=== PATIENT | male | born 1990 | race Caucasian/White ===

== ENCOUNTER 2022-05-27 11:55 | Day surgery (SDC) | payer OTHER ==
[~2022-05-27] VITALS: Ht 180.3 cm; Wt 81.8 kg
[~2022-05-27 11:55] MED LIST: KEFLEX500 MG PO; NORCO 5-325 TA1 EACH PO; ZOFRAN4 MG PO
--- NOTE | 2022-05-27 14:54 | NUR ---
05/27/22 1454 Joyce Fair 1449- PT ARRIVES TO PACU AWAKE AND TALKING. PT REPORTS NO PAIN OR NAUSEA. PT REPORTS HE JUST "FEELS TIRED". RESP EVEN AND UNLABORED. OXYGEN SAT HIGH 90'S TO 100% ON 3L VIA NC. 1452- OXYGEN TITRATED OFF.
--- NOTE | 2022-05-28 13:13 | OR ---
[facility] [address] [place], [place] [address] Signed DATE OF OPERATION: 05/27/2022 SURGEON: Gibson Vital MD PREOPERATIVE DIAGNOSIS: Anal fissure, episodic protrusion of internal hemorrhoid, episodic rectal bleeding. POSTOPERATIVE DIAGNOSES: 1. Internal hemorrhoid x1. 2. Probable healing anal fissure. 3. No evidence of colitis, polyps, or diverticulosis. PROCEDURE: Total colonoscopy to cecum with biopsy of rectum. ANESTHESIA: Intravenous sedation, fentanyl 150 mcg, Versed 8 mg. INDICATION: This 32-year-old white man, who is a patient of Dr. Garcia. He was seen by me in the office upon referral for a lesion on his scalp as well as complaints of "hemorrhoids." He has had blood per rectum from time to time with associated pain on defecation. Clinically, he has probable grade 3 hemorrhoidal disease requiring self reduction of prolapsed hemorrhoid. 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. He takes no medications on a routine basis. Examination in the office showed him to have minimal external hemorrhoidal tags and anterior anal fissure relatively superficial. Therapy was initiated for the fissure including diltiazem ointment, which he has only recently obtained. He is to undergo colonoscopy to better characterize the source of his bleeding in particular to assess for more ominous problems including polyps, cancer, and so on. FINDINGS: The prep was excellent. Complete colonoscopy was undertaken of the cecum without question. He had a dominant internal hemorrhoid. I did not see fissure findings as I had previously though examination was not as thorough as might be obviously. A biopsy was taken of the rectum to rule out inflammatory bowel disease. DESCRIPTION OF PROCEDURE: The patient was brought to the endoscopy suite and placed in the lateral decubitus Electronically Signed By: GIBSON VITAL MD 05/28/22 1313 PATIENT NAME: SAJI DEVI OPERATIVE REPORT DATE OF : [birth year] REPORT #: [id number] PHYSICIAN: GIBSON VITAL MD PCP: NO PRIMARY CARE PHYSICIAN REPORT IS CONFIDENTIAL AND NOT TO BE RELEASED WITHOUT AUTHORIZATION [facility] [address] [place], [place] [address] Signed position given intravenous sedation to the point of slurred speech and nystagmus. Digital rectal examination was normal. Olympus video colonoscope was passed in the rectum and manipulated throughout the colon ultimately intubating the cecum. The ileocecal valve and appendiceal orifice were normal. Scope was withdrawn from that point. Examination throughout showed no sign of abnormality. In the rectum, a biopsy was obtained to assess for inflammatory bowel disease. Retroflexed view was undertaken showing a dominant hemorrhoidal complex. Close inspection of the anal canal externally did not show evidence currently of anal fissure as had been seen in the office recently. The scope was removed. The patient was taken to the recovery room in good condition. CONCLUSION DIAGNOSIS: No evidence of polyps or colitis. Internal hemorrhoid likely accounting for some of his symptoms. The fissure that he had appears to be healing. PLAN: We will see him back in the office in 4 weeks. Likely the fissure will be healed by then. Consideration will be made for hemorrhoidal banding or excision (more likely) at that point. Gibson Vital MD JM/MODL /[id number] cc: Kian Garcia DO Copies: KIAN GARCIA DO ~ Electronically Signed By: GIBSON VITAL MD 05/28/22 1313 PATIENT NAME: SAJI DEVI OPERATIVE REPORT DATE OF : [birth year] REPORT #: [id number] PHYSICIAN: GIBSON VITAL MD PCP: NO PRIMARY CARE PHYSICIAN REPORT IS CONFIDENTIAL AND NOT TO BE RELEASED WITHOUT AUTHORIZATION
--- NOTE | 2022-05-31 07:34 | PATH ---
[facility] [address] [facility] [place] [address] Signed SPECIMEN(S): A RECTUM SPECIMEN SOURCE: A. RECTUM CLINICAL HISTORY: Screening with possible biopsy. Postop diagnosis: Internal hemorrhoids FINAL PATHOLOGIC DIAGNOSIS: Rectum, biopsy: - Benign colonic mucosa with prominent intramucosal lymphoid aggregates. - No evidence of neoplasia. COMMENT: Examination of sections from three different levels of the tissue block discloses the presence of benign intramucosal lymphoid aggregates. Intramucosal lymphoid aggregates can sometimes appear as polyps endoscopically. They have no clinical significance. There is no evidence of dysplasia or malignancy. TWK:[facility]:C2NR MICROSCOPIC EXAMINATION: Histologic sections of all submitted blocks are examined by light microscopy. These findings, together with the gross examination, support the pathologic diagnosis. GROSS DESCRIPTION: The specimen, labeled "CB, 1," and designated on the requisition "rectum biopsy," is received in formalin and consists of two fragments of pink-sotomayor tissue (0.4 cm in greatest dimension). The specimen is submitted entirely in cassette A1. AC (under the direct supervision of a pathologist) The Gross Description was prepared using a voice recognition system. The report was reviewed for accuracy; however, sound-alike word errors, addition and/or deletions may occur. If there is any question about this report, please contact Client Services. PERFORMING LABORATORY: The technical component was performed by [facility], [address] [place] [id number] (CLIA# [id number]). The professional interpretation was performed by [facility] PATIENT NAME: SAJI DEVI PATHOLOGY DATE OF : [birth year] REPORT #: [id number] PHYSICIAN: ALANNAH PATHOLOGY PCP: NO PRIMARY CARE PHYSICIAN REPORT IS CONFIDENTIAL AND NOT TO BE RELEASED WITHOUT AUTHORIZATION [facility] [address] [place], [place] [address] Signed [place] [address] [address] (CLIA#: [id number]). Diagnostician: Ranjit Alfonso MD Pathologist Electronically Signed 05/28/2022 Copies: ~ PATIENT NAME: SAJI DEVI PATHOLOGY DATE OF : [birth year] REPORT #: [id number] PHYSICIAN: ALANNAH PATHOLOGY PCP: NO PRIMARY CARE PHYSICIAN REPORT IS CONFIDENTIAL AND NOT TO BE RELEASED WITHOUT AUTHORIZATION
== END 2022-05-27 15:35 | disposition home or self-care (01) ==
LOC: OPS 11:55 → DS 12:03 → OPS 13:00 → DS 13:00 → OPS 15:35
PROVIDERS: ATTEND Surgery
PROC: 0DBP8ZX Excision of Rectum, Via Natural or Artificial Opening Endoscopic, Diagnostic (ICD-10-PCS; principal; 2022-05-27 13:00)
DX: K60.1 Chronic anal fissure (principal); K64.8 Other hemorrhoids
CPT/HCPCS: 99153; G0500; J2250; J3010; J7121

== ENCOUNTER 2022-09-16 09:02 | Day surgery (SDC) | payer OTHER ==
[~2022-09-16] VITALS: Ht 180.3 cm; Wt 90.9 kg
[2022-09-16] MEDS ORDERED: OXYCODON-ACETA1 EAC2 PO (12:03)
[2022-09-16] MEDS ORDERED: IBUPROFEN600 MG PO (12:03)
[2022-09-16] MEDS ORDERED: ACETAMINOPHEN500 MG PO (12:04)
[2022-09-16] MEDS ORDERED: CITRUCEL500 MG PO (12:04)
--- NOTE | 2022-09-17 10:58 | OR ---
[facility] [address] [place], [place] [address] Signed DATE OF OPERATION: 09/16/2022 SURGEON: Gibson Vital MD PREOPERATIVE DIAGNOSIS: Grade 3/4 prolapsing hemorrhoidal disease, right anterior and right posterior bundles. POSTOPERATIVE DIAGNOSIS: Grade 3/4 prolapsing hemorrhoidal disease, right anterior and right posterior bundles. PROCEDURES: 1. Exam under anesthesia. 2. Excision of grade 4 hemorrhoid right anterior site and grade 3 right posterior hemorrhoidal complex. ANESTHESIA: Spinal with IV sedation, Kelvin Green, CERTIFIED ETHICAL HACKER and local 10 mL of 0.25% Marcaine with epinephrine. INDICATION: This 32-year-old white man is a patient of Dr. Kian Garcia. He was seen by me initially for rectal bleeding. He underwent colonoscopy on May 27, 2022, where he was found to have a dominant grade 3/4 hemorrhoidal complex as well as a healing anal fissure. He had no evidence of colitis, polyps, or diverticulosis. He did undergo hemorrhoidal banding of the proximal grade 3 hemorrhoid, which was unfortunately ineffective, but though not surprising considering the large size of the hemorrhoidal complex. Given the ongoing issue of episodic bleeding but more dominantly perianal hygiene issues and so forth, he elected to undergo hemorrhoidectomy by operative approach. The risk of bleeding, infection, recurrence, and other unforeseen complications were reviewed in detail. He understands and wished to proceed. FINDINGS: The classic hemorrhoidal areas (right posterior, right anterior and left lateral) were all obvious. The left lateral was not dominant, although did have an internal component could likely be managed by hemorrhoidal banding if bleeding should occur. The dominant hemorrhoidal problem was in the right anterior aspect. This allowed for complete hemorrhoidectomy. The right posterior hemorrhoidal bundle was smaller, though definitely abnormally enlarged and was excised as well. DESCRIPTION OF PROCEDURE: Electronically Signed By: GIBSON VITAL MD 09/17/22 1058 PATIENT NAME: SAJI DEVI OPERATIVE REPORT DATE OF : [birth year] REPORT #: [id number] PHYSICIAN: GIBSON VITAL MD PCP: KIAN GARCIA DO REPORT IS CONFIDENTIAL AND NOT TO BE RELEASED WITHOUT AUTHORIZATION [facility] [address] [place], [place] [address] Signed The patient was brought to the operating room, given a spinal anesthetic and placed in prone ari-knife position. Modified bowel prep had been undertaken. Preoperative antibiotic cefoxitin was given. Sequential compression device stockings were used and heparin subcutaneously administered. After appropriate spinal block, he was placed in a prone ari-knife position. The buttocks were taped apart. Betadine based operative site prep was undertaken. Examination externally showed the right anterior and right posterior hemorrhoidal complexes to be protruding slightly the left lateral complex, not so much. An anal retractor was placed and the dominant right anterior hemorrhoidal complex was the one of most concern and symptom to him. It was grasped with a Quintanilla clamp and elevated and using electrocautery the skin incorporating the hemorrhoidal complex excised. Small vigorously bleeding vessels were secured with hemostats dissecting down to and above the dentate line. Ultimately, that site was secured with a 2-0 chromic suture on a UR needle. Hemorrhoid was passed as right anterior hemorrhoidal complex. The mucosal defect was then secured with running 2-0 chromic having been applied to the vascular pedicle. Care was taken to avoid excessively deep bites so as to avoid anorectal spasm. The suture was tied prior to complete closure to allow for drainage as appropriate. Irrigation was undertaken. With similar technique, the right posterior hemorrhoidal complex was similarly excised. It was far smaller than the anterior one, but though no doubt problematic for him already. A 10 mL of 0.25% Marcaine with epinephrine was injected locally. Examination of the left lateral aspect showed grade 2 hemorrhoidal change. Operative excision was deemed inadvisable under the circumstances and that tissue was left in situ. That hemorrhoidal complex might be amenable to banding if he should develop bleeding (which he has not as far as we know). A peripad was applied. He was returned to the supine position and ultimately taken to the recovery room in good condition. Blood loss was about 30 mL in aggregate. Sponge, needle, and instrument counts were reported as correct x3. MD [place] Lee/MODL /[id number] cc: Kain Garcia DO Electronically Signed By: GIBSON VITAL MD 09/17/22 1058 PATIENT NAME: SAJI DEVI OPERATIVE REPORT DATE OF : [birth year] REPORT #: [id number] PHYSICIAN: GIBSON VITAL MD PCP: KIAN GARCIA DO REPORT IS CONFIDENTIAL AND NOT TO BE RELEASED WITHOUT AUTHORIZATION [address] [address] Signed Copies: KIAN GARCIA DO ~ Electronically Signed By: GIBSON VITAL MD 09/17/22 1058 PATIENT NAME: SAJI DEVI OPERATIVE REPORT DATE OF : [birth year] REPORT #: [id number] PHYSICIAN: GIBSON VITAL MD PCP: KIAN GARCIA DO REPORT IS CONFIDENTIAL AND NOT TO BE RELEASED WITHOUT AUTHORIZATION
== END 2022-09-16 12:35 | disposition home or self-care (01) ==
LOC: DS 09:02
PROVIDERS: ATTEND Surgery
PROC: 06BY4ZC Excision of Hemorrhoidal Plexus, Percutaneous Endoscopic Approach (ICD-10-PCS; principal; 2022-09-16 11:00)
DX: K64.3 Fourth degree hemorrhoids (principal); K64.2 Third degree hemorrhoids
CPT/HCPCS: 36415; 80053; 85025; J0690; J2001; J2704; J7121

== ENCOUNTER 2023-05-07 18:50 | Emergency (ER) | payer OTHER ==
[~2023-05-07] VITALS: Ht 180.3 cm; Wt 86.5 kg
[~2023-05-07 18:50] MED LIST changes: +ACETAMINOPHEN500 MG PO; +CITRUCEL500 MG PO; +IBUPROFEN600 MG PO; +OXYCODON-ACETA1 EAC2 PO
[2023-05-07 20:17] LABS: INFLUENZA B NAA NEGATIVE (NEGATIVE); RESPIRATORY SYNCYTIAL VIR NAA NEGATIVE (NEGATIVE)
[2023-05-07] MEDS ORDERED: PROTONIX40 MG PO (21:18)
[2023-05-07] MEDS ORDERED: ONDANSETRON ODT8 MG PO (21:18)
[2023-05-07 21:47] VITALS: BP 131/88
== END 2023-05-07 21:48 | disposition home or self-care (01) ==
LOC: ED 18:50
PROVIDERS: Emergency Medicine
DX: U07.1 COVID-19 (principal); Z88.0 Allergy status to penicillin; Z88.8 Allergy status to other drugs, medicaments and biological substances
CPT/HCPCS: 87502; 99284; A9270; C9803; U0002

== ENCOUNTER 2025-04-07 14:12 | Observation (INO) | payer OTHER ==
[~2025-04-07] VITALS: Ht 180.3 cm; Wt 85.1 kg
[~2025-04-07 14:12] MED LIST changes: +ONDANSETRON ODT8 MG PO; +PROTONIX40 MG PO; +SEVOFLURANE 250 ML BTL INH ONE
[2025-04-07 14:37] LABS: BASOPHILS 0.5 % (0.2-1.2); EOSINOPHILS 0.1 % (0.8-7.0); LYMPHOCYTES 6.7 % (21.8-53.1); MCH 29.6 PG (25.7-32.2); MCHC 36.3 g/dL (32.3-36.5); MCV 81.5 fL (79.0-92.2); MONOCYTES 4.3 % (5.3-12.2); NEUTROPHILS 88.0 % (34.0-67.9); RBC 5.78 M/uL (4.63-6.08)
[2025-04-07 14:53] LABS: ALT (SGPT) 17.0 U/L (14-59); AST (SGOT) 17.0 U/L (15-37); GLOMERULAR FILTRATION RATE,EST 90.0 mL/min (>60); PROTEIN, TOTAL 7.6 g/dL (6.4-8.2); UREA NITROGEN 14.0 mg/dL (7-18)
[2025-04-07] MEDS ORDERED: HYDROmorphone HCL 1 MG/ML SYR IV PRN ×2 (15:45→20:30)
[2025-04-07] MEDS ORDERED: SODIUM CHLORIDE 0.9% 1,000 ML IV ONE (15:45)
[2025-04-07 17:11] LABS: BLOOD/HGB, URINE NEGATIVE (Negative); KETONE, URINE >=80 (Negative); LEUK ESTERASE, URINE NEGATIVE (negative); NITRITE, URINE NEGATIVE (negative)
[2025-04-07] MEDS ORDERED: LACTATED RINGER'S 1,000 ML IV SCH ×2 (18:15→20:30)
[2025-04-07] MEDS ORDERED: PIPERACILLIN/TAZOBACTAM 4.5 GM in SODIUM CHLORIDE 0.9% 100 ML IV ONE (18:15)
[2025-04-07] MEDS ORDERED: DEXAMETHASONE SOD PHOS 4 MG/ML VIAL ONE ×2 (19:33→19:54)
[2025-04-07] MEDS ORDERED: KETOROLAC TROMETHAMINE 30 MG/ML VIAL ONE (19:33)
[2025-04-07] MEDS ORDERED: ROCURONIUM BROMIDE 50 MG/5 ML SYR ONE ×2 (19:34→20:06)
[2025-04-07] MEDS ORDERED: fentaNYL citrate 100 MCG/2 ML VIAL ONE (19:34)
[2025-04-07] MEDS ORDERED: LIDOCAINE HCL 2% 5 ML SDV ONE (19:34)
[2025-04-07] MEDS ORDERED: SUGAMMADEX SODIUM 200 MG/2 ML ML ONE (19:34)
[2025-04-07] MEDS ORDERED: ACETAMINOPHEN 1,000 MG/100 ML VIAL ONE (19:44)
[2025-04-07] MEDS ORDERED: SODIUM CHLORIDE 0.9% 40 ML IV ONE (19:47)
[2025-04-07] MEDS ORDERED: Ropivacaine HCl 0.5% 30 ML VIAL ONE (19:47)
[2025-04-07] MEDS ORDERED: LIDOCAINE HCL 1% 30 ML SDV ONE (19:57)
[2025-04-07] MEDS ORDERED: ACETAMINOPHEN 325 MG TAB PO PRN (20:30)
[2025-04-07] MEDS ORDERED: FAMOTIDINE 20 MG/ 2 ML VIAL IV SCH (21:00)
[2025-04-07] MEDS ORDERED: fentaNYL citrate 50 MCG/ML SDV IV PRN (21:00)
[2025-04-07] MEDS ORDERED: IBLOOD GLUCOSE TEST STRIP 1 EA TEST VI PRN (21:00)
[2025-04-07] MEDS ORDERED: NALOXONE HCL 0.4 MG SYR IV PRN (21:00)
--- NOTE | 2025-04-07 21:01 | NUR ---
04/07/252100 Amber Kaba LE 2042: PT ARRIVES TO PACU. REPORT RECEIEVED FROM COMMUNICATIONS DEPARTMENT CHAIR. HE IS REACTIVE TO STIMULI, DOES NOT WANT TO KEEP O2 MASK ON. LIGHT PLACED BY FACE FOR BLOW BY AFFECT. 2051: PT TAKES HIS OXYGEN MASK OFF. O2 TURNED OFF, ROOM AIR TRIAL STARTED. 2058: PT WAKES UP ENOUGH TO OPEN HIS EYES AND ANSWER QUESTIONS APPROPRIATELY. HE DENIES PAIN OR NAUSEA, STATES HIS FACE IS ITCHING AND HE IS TRYING TO WAKE UP. HE IS EDUCATED THAT MEDICATION HE WAS GIVEN WILL MAKE HIS FACE ITCHING AND ANOTHER TO MAKE HIM WAKE UP A LITTLE BIT SLOWER.
[2025-04-07 21:21] VITALS: BP 115/77
--- NOTE | 2025-04-07 21:38 | NUR ---
RECEIVED REPORT, PT ARRIVED IN ROOM 112 FROM OR. NOTIFIED PT . VITALS TAKEN, VSS. NO PAIN PRESENTLY. CALL SARAY DOMINGUEZ
[2025-04-07] MEDS ORDERED: PIPERACILLIN/TAZOBACTAM 4.5 GM in SODIUM CHLORIDE 0.9% 100 ML IV SCH (22:00)
[2025-04-07 22:25] VITALS: BP 103/59
--- NOTE | 2025-04-07 22:25 | NUR ---
POST-OP VITALS 08/25. GIVEN IV PEPCID PER ORDER; IV ZOSYN RETIMED D/T PREVIOUS ADMIN AT 1800. PT EASILY WOKEN, THOUGH DROWSY. DENIES PAIN. NO NEEDS FOR NOW, CALL [facility] INRE[facility]
[2025-04-07 23:29] VITALS: BP 108/60
--- NOTE | 2025-04-07 23:29 | NUR ---
POST-OP VITALS /. VSS. PT EASILY BACK TO SLEEP, [facility]
[2025-04-07 23:32] VITALS: BP 108/60
[2025-04-08 00:28] VITALS: BP 103/65
--- NOTE | 2025-04-08 00:28 | NUR ---
POST-OP VITALS 3/4. NO NEEDS, CALL [facility]
[2025-04-08 01:57] VITALS: BP 125/73
[2025-04-08 01:58] VITALS: BP 125/73
--- NOTE | 2025-04-08 01:58 | NUR ---
FINAL POST OP VITALS. GIVEN DILAUDID 0.5MG FOR 5/10 PAIN. GIVEN IV ABX. REFRESHED ICE WATER, CALL [facility]
[2025-04-08] MEDS ORDERED: PIPERACILLIN/TAZOBACTAM 4.5 GM in SODIUM CHLORIDE 0.9% 100 ML IV SCH (02:00)
--- NOTE | 2025-04-08 03:27 | NUR ---
PT REPORTS PAIN IS GREATLY IMPROVED FROM PREVIOUS. NO NEEDS, CALL [facility]
--- NOTE | 2025-04-08 05:03 | NUR ---
PT RESTING IN BED WITH EYES CLOSED, RISE AND FALL OF CEHST OBSERVED. CALL [facility] RE[facility]
[2025-04-08 05:16] VITALS: BP 116/79
[2025-04-08 05:17] LABS: BASOPHILS 0.1 % (0.2-1.2); EOSINOPHILS 0.1 % (0.8-7.0); LYMPHOCYTES 5.6 % (21.8-53.1); MCH 29.6 PG (25.7-32.2); MCHC 34.8 g/dL (32.3-36.5); MCV 85.1 fL (79.0-92.2); MONOCYTES 1.6 % (5.3-12.2); NEUTROPHILS 92.2 % (34.0-67.9); RBC 5.30 M/uL (4.63-6.08)
--- NOTE | 2025-04-08 05:37 | NUR ---
GIVEN PRN DILAUDID 1MG AND PRN TYLENOL. PT STILL DUE TO VOID. INSTRUCTED PT WILL GET OUT OF BED TO BATHROOM AFTER PAIN MEDS. CALL [facility]
--- NOTE | 2025-04-08 07:17 | NUR ---
REPORT FROM DESHAWN GONZALEZ.
[2025-04-08 07:39] VITALS: BP 116/79
--- NOTE | 2025-04-08 07:49 | NUR ---
MORNING ASSESSMENT IS COMPLETE. PATIENT IS RESTING IN BED, RATES ABD PAIN 5/10 BUT DENIES NEED FOR MEDICATIONS AT THIS TIME. X3 SCOPE SITES ARE INTACT WITH CLUE. PATIENT IS ON ROOM AIR 96%. NO OTHER NEEDS AT THIS TIME.
--- NOTE | 2025-04-08 09:13 | NUR ---
PATIENT GIVEN IV PEPCID, 1MG OF IV DILAUDID FOR 8/10 ABD PAIN. NEW BAG OF IVF INFUSING. NO OTHER NEEDS AT THIS TIME.
--- NOTE | 2025-04-08 09:18 | NUR ---
INTO SEE PATIENT. PERSONAL HEALTH INFORMATION REVIEWED. PATIENT LIVES IN A HOUSE WITH . ONE STEP INTO THE HOME. DENIES ANY DIFFCULTY DOING IT. PATIENT DOES NOT USE ANY DME. PATIENT DOES DRIVE. PATIENT DENIES ANY DIFFCULTY PAYING UTLITIES OR OBTAINING FOOD. PATIENT REFUSED US SETTING UP A PCP APPOINTMENT. NO FUTHER CM NEEDS.
--- NOTE | 2025-04-08 09:24 | OR ---
[facility] [address] [place], [place] [address] Signed DATE OF OPERATION: 04/07/2025 SURGEON: Peggy Morales DO PREOPERATIVE DIAGNOSIS: Acute suppurative appendicitis. POSTOPERATIVE DIAGNOSIS: Acute suppurative appendicitis. PROCEDURE PERFORMED: Laparoscopic appendectomy. ANESTHESIA: General. ESTIMATED BLOOD LOSS: Minimal. DRAINS: None. COMPLICATIONS: None. DESCRIPTION OF PROCEDURE: The patient was brought to the operating room and placed in supine position and after induction of general endotracheal anesthesia, the abdomen was then sterilely shaved, prepped and draped in usual fashion. After appropriate time-out was taken and all were in agreement, skin was incised in the subumbilical region . A Veress needle was then placed into the abdominal cavity and utilizing water drop technique, the abdomen was insufflated with approximately 4 L of CO2 gas. Veress needle was exchanged for a 5 mm port and the port was placed. Camera was placed. Exploration was carried out. There was a separate stab incision in the suprapubic region and a 5 mm disposable trocar was placed under direct visualization and in the left lateral quadrant, a 12 mm disposable trocar was placed under direct visualization as well. The appendix was identified. The mesoappendix was identified. The appendix was brought up into the field and utilizing the LigaSure device, the mesentery and the mesoappendix were then sterilely ligated to the base of the appendix. Satisfactory hemostasis was maintained. An Endo-NIKOLAI vascular load stapler device was then placed across the base of the appendix Electronically Signed By: PEGGY MORALES DO 04/08/25 0924 PATIENT NAME: SAJI DEVI OPERATIVE REPORT DATE OF : [birth year] REPORT #: [id number] PHYSICIAN: PEGGY MORALES DO PCP: NO PRIMARY CARE PHYSICIAN REPORT IS CONFIDENTIAL AND NOT TO BE RELEASED WITHOUT AUTHORIZATION [facility] [address] [place], [place] [address] Signed and at the joint, the cecum was closed, fired, and then the appendix from its attachment. The appendix was placed in an Endobag and brought out through the 12 mm port and passed off the field. The entire region was then copiously irrigated and dried. No other bleeding sites were apparent. Surgicel powder was placed in the appendiceal stump, mesenteric region, and mesoappendix region. The 12 mm port was closed with interrupted 0 Vicryl. All instrumentation was removed. All gas was allowed to escape from the abdominal cavity. Incision sites were then closed with 4-0 Monocryl in subcuticular fashion. Dermabond dressing was applied. The patient tolerated the procedure well and taken to recovery room in satisfactory condition. DO RAISSA Fenton/RAYSHAWNL /[id number] Copies: ~ Electronically Signed By: PEGGY MORALES DO 04/08/25 0924 PATIENT NAME: SAJI DEVI OPERATIVE REPORT DATE OF : [birth year] REPORT #: [id number] PHYSICIAN: PEGGY MORALES DO PCP: NO PRIMARY CARE PHYSICIAN REPORT IS CONFIDENTIAL AND NOT TO BE RELEASED WITHOUT AUTHORIZATION
--- NOTE | 2025-04-08 09:30 | NUR ---
PATIENT IS ANXIOUS TO GO HOME, AWAITING THE DOCTOR. PATIEN IS SIPPING ON ICE WATER, DENIES OTHER NEEDS. PATIENT ENCOURAGED TO AMBULATE.
[2025-04-08 10:07] VITALS: BP 116/69
--- NOTE | 2025-04-08 10:09 | NUR ---
PATIENT IN BED RESTING AT THIS TIME. VITALS DONE AND CHARTED. PATIENT HAS NO INTAKE OR OUTPUT TO CHART, RN NOTIFIED. CALL [facility] REACH. NO FURTHER NEEDS AT THIS TIME.
--- NOTE | 2025-04-08 10:15 | NUR ---
PATIENT REPORTS PAIN MEDICATION WAS EFFECTIVE AND IS "FINE." IV ZOSYN INFUSING FOR 4 HOURS.
--- NOTE | 2025-04-08 11:26 | NUR ---
PATIENT IS RESTING IN BED, WOULD LIKE TO GO HOME.
[2025-04-08] MEDS ORDERED: HYDROCODON-ACE1 EA11 PO (12:00)
[2025-04-08] MEDS ORDERED: LEVOFLOXACIN500 MG PO (12:00)
[2025-04-08] MEDS ORDERED: ONDANSETRON HCL4 MG PO (12:01)
--- NOTE | 2025-04-08 12:30 | NUR ---
PATIENT DISCHARGE REVIEWED WITH PATIENT. PATIENT IS GETTING DRESSED AND WILL CALL WHEN READY FOR WHEELCHAIR RIDE.
--- NOTE | 2025-04-08 13:43 | NUR ---
UR CLINICAL REVIEW: [facility] REVIEW MEETS OBS FOR APPENDICITIS BASIC DMAP OBS 04/07/25 @ 2036 ORDER MATCHES REG NO AUTH REQUIRED PER MEDICAID GUIDELINES DISCHARGE TO HOME ANTICIPATED TODAY 04/09/25
--- NOTE | 2025-04-11 16:08 | PATH ---
[facility] [address] [facility] [place] [place] [address] Signed SPECIMEN(S): A APPENDIX SPECIMEN SOURCE: A. APPENDIX CLINICAL HISTORY: Appendicitis FINAL PATHOLOGIC DIAGNOSIS: Appendix, appendectomy: - Acute appendicitis. - No malignancy identified. MICROSCOPIC EXAMINATION: Histologic sections of all submitted blocks are examined by light microscopy. These findings, together with the gross examination, support the pathologic diagnosis. GROSS DESCRIPTION: The specimen, labeled and designated "William Fragoso, appendix," is received in formalin and consists of Specimen: Appendix with mesoappendix. Dimensions: 5.7 x 1.4 cm. Serosa: Dusky pink with areas of metz-white exudate. Defect: Not grossly identified. Inking: Staple line is inked blue. Mucosa: Red-black and finely granular. Fecalith: Not grossly identified. Additional: None. Core Shaper sections are submitted in (A1). FB (under the direct supervision of a pathologist) The Gross Description was prepared using a voice recognition system. The report was reviewed for accuracy; however, sound-alike word errors, addition and/or deletions may occur. If there is any question about this report, please contact Client Services. ADDITIONAL NOTES: Immunohistochemical and/or in situ hybridization studies if performed in this case included appropriate positive controls that reacted as expected. This test was developed and its performance characteristics determined by [facility]. It has not been cleared or PATIENT NAME: SAJI FRAGOSO PATHOLOGY DATE OF : [birth year] REPORT #: [id number] PHYSICIAN: ALANNAH PATHOLOGY PCP: NO PRIMARY CARE PHYSICIAN REPORT IS CONFIDENTIAL AND NOT TO BE RELEASED WITHOUT AUTHORIZATION [facility] [address] [place] [id number] Signed approved by the U.S. Food and Drug Administration. The FDA has determined that such clearance or approval is not necessary. This test is used for clinical purposes. It should not be regarded as investigational or for research. [facility] is certified under the Clinical Laboratory Improvement Amendments of 1988 (CLIA) as qualified to perform high complexity clinical laboratory testing. PERFORMING LABORATORY: Technical component was performed by [facility], [address] [place] [id number] (CLIA# [id number]). Professional interpretation was performed by [facility], [address] [place] [id number] (CLIA#: [id number]). Diagnostician: Jose Ramon Navarro MD Pathologist Electronically Signed 04/11/2025 Copies: ~ PATIENT NAME: SAJI FRAGOSO PATHOLOGY DATE OF : [birth year] REPORT #: [id number] PHYSICIAN: ALANNAH PATHOLOGY PCP: NO PRIMARY CARE PHYSICIAN REPORT IS CONFIDENTIAL AND NOT TO BE RELEASED WITHOUT AUTHORIZATION
== END 2025-04-08 12:40 | disposition home or self-care (01) ==
LOC: ED 14:12 → MS 14:14
PROVIDERS: Emergency Medicine; ADMIT Surgery; ATTEND Surgery
PROC: 0DTJ4ZZ Resection of Appendix, Percutaneous Endoscopic Approach (ICD-10-PCS; principal; 2025-04-07 19:04)
DX: K35.80 Unspecified acute appendicitis (principal); Z86.16 Personal history of COVID-19; Z88.0 Allergy status to penicillin; Z88.8 Allergy status to other drugs, medicaments and biological substances
CPT/HCPCS: 00840; 36415; 74177; 76942; 80053; 81003; 83690; 85025; 88304; 96361; 96365; 96375; 96376; 99285-25; A9270; J0131; J1100; J1171; J1885; J2003; J2405; J2543; J2704; J2795; J3010; J3490; J7030; J7121; Q9967